=== PATIENT | female | born 1990 | race Caucasian/White ===

== ENCOUNTER 2018-01-07 16:38 | Emergency (ER) | payer BC ==
[~2018-01-07] VITALS: Ht 170.2 cm; Wt 75.0 kg
[2018-01-07 16:41] VITALS: BP 112/76; PULSE 69; TEMP 98.1
== END 2018-01-07 17:12 | disposition home or self-care (01) ==
LOC: COL.ER 16:38
DX: S61.412A Laceration without foreign body of left hand, initial encounter (principal); W26.8XXA Contact with other sharp object(s), not elsewhere classified, initial encounter; Y92.009 Unspecified place in unspecified non-institutional (private) residence as the place of occurrence of the external cause

== ENCOUNTER 2018-02-13 21:02 | Emergency (ER) | payer BC ==
[~2018-02-13] VITALS: Ht 167.6 cm; Wt 72.7 kg
[2018-02-13 21:06] VITALS: BP 134/82; TEMP 98.8
[2018-02-13] MEDS ORDERED: FOCALIN XR20 MG PO (21:09)
[2018-02-13] MEDS ORDERED: FOCALIN XR15 MG PO (21:09)
[2018-02-13] MEDS ORDERED: ZITHROMAX Z PA250 MG PO (22:52)
[2018-02-13 23:05] VITALS: PULSE 82
== END 2018-02-13 23:06 | disposition home or self-care (01) ==
LOC: COL.ER 21:02
DX: R05 Cough (principal); G40.909 Epilepsy, unspecified, not intractable, without status epilepticus